=== PATIENT | female | born 1975 | race Caucasian/White ===

== ENCOUNTER 2018-04-08 19:20 | Emergency (ER) | payer OTHER ==
[~2018-04-08] VITALS: Ht 170.2 cm; Wt 74.8 kg
[2018-04-08 19:35] VITALS: BP 119/73
--- NOTE | 2018-04-08 19:35 | NUR ---
PT PRESENTS TO ED WITH X4 QUADRANT ABD PAIN DESCRIBED INTERMITTENT MUSCLES SPASMS /10 X1 WEEK, DENIES N/V/D; PT C/O HEART PALIPATIONS INTERMITTENTLY THROUGHOUT THE WEEK X1 WK, DENIES CHEST PAIN, HR IS 91 AND NSR; PT C/O WEIGHTLOSS OF 10 LBS IN 1 WK. PT DENIES PAST MEDICAL HX. VSS. POSITIONED IN BED FOR COMFORT WITH SIDE RAIL UP. ER AWARE. CONTINUE TO MONITOR.
--- NOTE | 2018-04-08 19:35 | NUR ---
TO BED # 1 AMBULATORY, REPORT GIVEN TO BIACNA HESS
[2018-04-08] MEDS ORDERED: NACL 0.9% 1,000 ML IV SCH (20:53)
[2018-04-08 21:22] LABS: APPEARANCE,URINE CLEAR (CLEAR); BILIRUBIN,URINE NEGATIVE (NEGATIVE); BLOOD, URINE NEGATIVE (NEGATIVE); COLOR,URINE YELLOW (YELLOW); LEUKOCYTE ESTERASE ,URINE NEGATIVE (NEGATIVE); NITRITE, URINE NEGATIVE (NEGATIVE); UGLUCOSE NEGATIVE (NEGATIVE)
[2018-04-08 21:23] LABS: BASOPHILS % (AUTO) 0.3 % (0.0-2.0); EOSINOPHILS # (AUTO) 0.1 K/uL (0-0.4); EOSINOPHILS % (AUTO) 1.4 % (0.0-4.0); HEMATOCRIT 40.9 % (36-48); HEMOGLOBIN 13.7 g/dL (12.0-16.0); LYMPHOCYTES # (AUTO) 2.9 K/uL (2.5-16.5); MEAN CORPUSCULAR HEMOGLOBIN 32 pg (27-31); MEAN CORPUSCULAR HGB CONC 34 g/dL (33-37); MEAN CORPUSCULAR VOLUME 94.6 fL (80-94); MONOCYTES # (AUTO) 0.5 K/uL (0.8-1.0); MONOCYTES % (AUTO) 6.4 % (1.7-9.3); NEUTROPHILS # (AUTO) 3.9 K/uL (1.8-7.7); NEUTROPHILS % (AUTO) 52.9 % (42.2-75.2); PLATELET COUNT (AUTO) 250 K/uL (140-450); RED BLOOD CELL COUNT(AUTO) 4.33 MIL/uL (4.20-5.40); RED CELL DISTRIBUTION WIDTH 12.2 % (11.6-13.7); WHITE BLOOD COUNT (AUTO) 7.5 K/uL (4.8-10.8)
[2018-04-08 21:36] LABS: ALBUMIN 3.7 g/dL (3.4-5.0); ANION GAP 3.7 (8-16); CARBON DIOXIDE 31.9 mmol/L (21-32); CREATININE 0.7 mg/dL (0.6-1.3); POTASSIUM 3.6 mmol/L (3.5-5.1); TOTAL BILIRUBIN 0.3 mg/dL (0.0-1.0)
--- NOTE | 2018-04-08 22:00 | NUR ---
AWAITING DC ORDERS FROM DR YORK.
[2018-04-08 23:00] VITALS: BP 119/73
--- NOTE | 2018-04-09 18:48 | NUR ---
ADDENDUM: CXR RESULTS YESTERDAY--- 8MM OVOID NODULE IN LEFT PERIHILAR REGION. CALLED PATIENT AT [phone]. PHONE NUMBER NON WORKING NUMBER. MADE AWARE.
== END 2018-04-08 23:00 | disposition home or self-care (01) ==
LOC: MED 19:20
DX: F41.9 Anxiety disorder, unspecified (principal); G47.00 Insomnia, unspecified; R63.4 Abnormal weight loss; Z68.25 Body mass index [BMI] 25.0-25.9, adult
CPT/HCPCS: 36415; 71045; 76700; 80053; 81003; 81025; 83690; 84484; 85025; 96360; 99285; J7030; Q0092

== ENCOUNTER 2020-05-24 09:49 | Emergency (ER) | payer OTHER ==
[~2020-05-24] VITALS: Ht 170.2 cm; Wt 86.2 kg
[2020-05-24 09:56] VITALS: BP 127/78
--- NOTE | 2020-05-24 10:05 | NUR ---
PT C/O INTERMITENT DIFFUSED ABDOMINAL PAIN FOR THE PAST 15 YEARS AND PT STATES SHE NEVER GETS TESTED FOR THE PAIN. PT STATES SHE ALSO HAS THE SX OF URGENCY AND FREQUENCY OF URINATION AND DYSURIA X 3 DAYS. PT REPORTS THE ABDOMEN IS HARD TO PALPATE WITH BLOATING. NO TENDERNESS OR REBOUND TENDERNESS TO PALPATION ON PT'S ABDOMEN. DENIES N/V/D; SKIN IS PINK/WARM/DRY; AAOX4 WITH EVEN AND STEADY GAIT; LUNGS CLEAR BL; HR EVEN AND REGULAR; PT DENIES ANY FEVER, CP, SOB, OR COUGH AT THIS TIME; PATIENT STATES PAIN OF 0/10 AT THIS TIME; VSS; PATIENT POSITIONED FOR COMFORT; HOB ELEVATED; BEDRAILS UP X1; BED DOWN. ER MD MADE AWARE OF PT STATUS.
--- NOTE | 2020-05-24 10:15 | NUR ---
Patient ambulated to bed 12. RN evaluating patient at bedside.
--- NOTE | 2020-05-24 10:21 | NUR ---
DR. DAVIS IS EVALUATING PT AT BEDSIDE.
--- NOTE | 2020-05-24 10:45 | NUR ---
CT WITH CONTRAST CONSENT OBTAINED FROM PT AT BEDSIDE.
[2020-05-24 10:55] LABS: WHITE BLOOD COUNT (AUTO) 4.2 K/uL (4.8-10.8)
[2020-05-24 10:56] LABS: BASOPHILS % (AUTO) 0.6 % (0.0-2.0); EOSINOPHILS # (AUTO) 0.2 K/uL (0-0.4); EOSINOPHILS % (AUTO) 4.1 % (0.0-4.0); HEMATOCRIT 33.6 % (36-48); HEMOGLOBIN 11.2 g/dL (12.0-16.0); LYMPHOCYTES % (AUTO) 16.9 % (20.5-51.1); MEAN CORPUSCULAR HEMOGLOBIN 32 pg (27-31); MEAN CORPUSCULAR HGB CONC 33 g/dL (33-37); MEAN CORPUSCULAR VOLUME 96.2 fL (80-94); MONOCYTES # (AUTO) 0.4 K/uL (0.8-1.0); MONOCYTES % (AUTO) 8.4 % (1.7-9.3); NEUTROPHILS # (AUTO) 1.7 K/uL (1.8-7.7); PLATELET COUNT (AUTO) 154 K/uL (140-450)
[2020-05-24 11:11] LABS: ALBUMIN 3.4 g/dL (3.4-5.0); ANION GAP 9.5 (8-16); CARBON DIOXIDE 32.6 mmol/L (21-32); CREATININE 0.6 mg/dL (0.6-1.3); POTASSIUM 4.1 mmol/L (3.5-5.1); TOTAL BILIRUBIN 0.3 mg/dL (0.0-1.0)
--- NOTE | 2020-05-24 11:25 | NUR ---
CT CALLED FOR CT SCAN WITH CONTRAST ON ABDOMEN/PELVIS.
--- NOTE | 2020-05-24 11:31 | NUR ---
Patient taken to CT scan via wheelchair by tech.
--- NOTE | 2020-05-24 11:46 | NUR ---
PT IS BACK FROM CT SCAN.
--- NOTE | 2020-05-24 13:01 | NUR ---
Patient discharged with v/s stable. Written and verbal after care instructions given and explained. Patient alert, oriented and verbalized understanding of instructions. Ambulatory with steady gait. All questions addressed prior to discharge. ID band removed. Patient advised to follow up with PMD. Rx of MiraLax Powder given. Patient educated on indication of medication including possible reaction and side effects. Opportunity to ask questions provided and answered.
--- NOTE | 2020-05-24 13:01 | NUR ---
IV d/c, 2x2 gauze placed to IV site, bleeding controlled
[2020-05-24 13:02] VITALS: BP 121/74
== END 2020-05-24 13:01 | disposition home or self-care (01) ==
LOC: MED 09:49
DX: R14.0 Abdominal distension (gaseous) (principal); Z98.890 Other specified postprocedural states
CPT/HCPCS: 36415; 74177; 80053; 81002; 83690; 84702; 85025; 99285; Q9967